=== PATIENT | female | born 1990 | race Caucasian/White ===

== ENCOUNTER 2019-10-18 20:23 | Emergency (ER) | payer BC ==
[~2019-10-18] VITALS: Ht 167.6 cm; Wt 70.5 kg
[2019-10-18 20:24] VITALS: BP 134/89
== END 2019-10-18 21:53 | disposition home or self-care (01) ==
LOC: ED 21:45
DX: S50.02XA Contusion of left elbow, initial encounter (principal); W01.0XXA Fall on same level from slipping, tripping and stumbling without subsequent striking against object, initial encounter; Y93.89 Activity, other specified; Y92.89 Other specified places as the place of occurrence of the external cause; Y99.8 Other external cause status
CPT/HCPCS: 99283